=== PATIENT | female | born 1950 | race Caucasian/White ===

== ENCOUNTER 2024-03-07 17:39 | Inpatient (IN) ==
--- NOTE | 2024-03-07 18:21 | Emergency Department Note ---
Impression & Plan Abscess of left thigh, Sepsis ED Provider Note Provider: Dusty Murillo MD DATE OF SERVICE: 03/07/2024 CHIEF COMPLAINT: Buttock abscess HISTORY OF PRESENT ILLNESS: Patient is a 73-year-old female history of diabetes and hypertension presenting here today referred for express care. Patient states over the past week or so she has been experiencing some soreness to the left buttock region. States she believes she has a boil there. Did have fevers earlier in the week last on Friday. Has been having a little bit of chills and develops a bit of nausea and diarrhea in the last several days. Not eating and drinking well. Bit more sore this afternoon and have difficulty moving her legs well. States has not been moving and getting out of bed very much and think she was just stiff as they are moving a bit better now. No Tylenol or pain medication today. No history of resistant infections in the past. Did express care and sent here for further evaluation and possible IV antibiotics. She is not on blood thinners. Has noted some drainage from the wound on her left buttock inner thigh region. PAST MEDICAL HISTORY: As noted above MEDICATIONS: Reviewed home medication SOCIAL HISTORY: Former nurse, PHYSICAL EXAM: GENERAL: alert and oriented in no acute distress on stretcher Head: normocephalic and atraumatic EYES: No injection, discharge or icterus. NECK: Trachea midline. ENT: Mucous membranes pink and moist. LUNGS: Airway patent. No retractions. Breath sounds clear with good air entry bilaterally. HEART: Regular rate and rhythm. No chest wall tenderness ABDOMEN: Soft and non-tender, without guarding or rebound. With nurse digital marketing associate present there is an approximately 5 to 6 cm area of erythema and fluctuance with some slight drainage of purulence in the left proximal inner thigh region between there and the buttock. SKIN: Acyanotic, warm, dry, without rashes EXTREMITIES: Without swelling, tenderness or deformity NEUROLOGICAL: No focal deficits. No aphasia. No facial droop or slurred speech. Normal strength and tone in the extremities. Sensation to gross touch normal. Ambulatory. EK beats minute sinus tachycardia. No PVC or PAC. No acute ST segment elevation or depression with QTc of 456. CONTINUOUS CARDIAC MONITORING: was ordered and showed a heart rate of 100s-120s bpm in sinus tachycardia Patient's laboratory studies and imaging reviewed. Differential includes Appendicitis, abscess, fistula, infections, diverticulitis, UTI, obstruction, mesenteric ischemia, aortic pathology, inflammatory bowel disease, renal colic, PUD, pancreatitis, biliary pathology, hernia, volvulus, constipation, as well as other pathologies. IMPRESSION/MEDICAL DECISION MAKING: Patient with a boil and some febrile infectious symptoms earlier in the week. Not ambulatory well and generalized fatigue. Has developed some nausea and some diarrhea by her reports. Appears to have a decent sized soft tissue abscess the left buttock and inner thigh region. Fairly disparate from the perineum but I do not believe this is a fistula or vaginally or rectally involved. Already draining some but discussed with her numbing and trying to ensure we have full lanced and drainage of the abscess. Culture was sent from this. Mildly tachycardic but not febrile here. Basic blood obtained. Will give dose of ceftriaxone and vancomycin here for antibiotic coverage including MRSA given its of decent size, her age, and her history of diabetes. Benign abdomen on exam. Has had some again some nausea and diarrhea but no tenderness. Doubt perforation or diverticulitis at this time. Do not believe we need further abdominal imaging. Given some IV fluid hydration, Tylenol, and Zofran for symptoms. Blood work here without anemia but leukocytosis of 21.8 is notable. Some slight hyponatremia and hypokalemia 133 and 3.1 noted. No severe renal dysfunction noted. No evidence of transaminitis. Procalcitonin not significantly elevated. Lipase slightly elevated at 290. Patient not having significant upper abdominal discomfort. Low suspicion this represents acute pancreatitis given lack of significant abdominal discomfort or pain. Receiving IV hydration. Is feeling bit better. Normally but tachycardic but blood pressure is little bit tenuous. Given the concerns for sepsis with his abscess after drainage did recommend that we keep her in the hospital. Patient was agreeable and hospitalist was consulted. Packing will need to be changed in 24 to 48 hours. DIAGNOSIS: Thigh abscess, sepsis DISPOSITION: Hospitalist will evaluate Patient was agreeable with this plan. INCISION and DRAINAGE: Performed by myself and the patient's left proximal thigh Indications for the procedure as well as its risks and benefits were explained to the patient who provided informed consent to proceed. Patient, procedure, and site were verified immediately before the procedure. The affected area was prepped and draped for sterile technique. Local anesthesia provided with 1% with epinephrine lidocaine infiltration approximately 10 cc. Abscess was incised with #11 blade and purulent material was expressed. Cavity was packed with sterile packing gauze. Patient tolerated the procedure well. Past Med/Surg History Problem List (Updated 03/07/24 @ 23:04 by Dusty Murillo M.D.) Sepsis (Acute) Abscess of left thigh (Acute) Social History Smoking Status: Never smoker Preferred Language: Cape Verdean Feels Safe at Home: Yes Allergies Allergies Allergy/AdvReac Type Severity Reaction Status Date / Time enviromental Allergy Sneeze, Uncoded 03/07/24 20:47 runny nose Home Meds Home Medications Medication Instructions Recorded Confirmed cholecalciferol (vitamin D3) 25 0 mcg PO DAILY 03/07/24 03/07/24 mcg (1,000 unit) tablet (Vitamin D3) ibuprofen 200 mg tablet 400 mg PO Q6H PRN Pain 03/07/24 03/07/24 lisinopril 20 1 tab PO DAILY 03/07/24 03/07/24 mg-hydrochlorothiazide 25 mg tablet loratadine 10 mg tablet (Claritin) 10 mg PO DAILY 03/07/24 03/07/24 rosuvastatin 40 mg tablet 40 mg PO 2XWK 03/07/24 03/07/24 semaglutide 7 mg tablet (Rybelsus) 7 mg PO DAILY 03/07/24 03/07/24 Results & Data (ED) Vital Signs Vital Signs - 24 hr 03/07/24 17:42 03/07/24 18:35 03/07/24 19:33 Temperature 37.0 C 37.3 C Temperature Source Temporal Artery Scan Oral Pulse Rate 125 H 109 H Pulse Rate [Apical] 104 H Pulse Rhythm [Apical] Pulse Strength [Apical] Respiratory Rate 18 19 Respiratory Effort / Characteristics Non-Labored Spontaneous Respiratory Depth Normal Respiratory Pattern Regular Blood Pressure 110/87 Blood Pressure [Left Arm] 103/60 Blood Pressure Mean 94 Blood Pressure Mean [Left Arm] 74 Pulse Oximetry 98 95 Oxygen Delivery Method Room Air Room Air Sepsis Recent Fever Within 48 Hours No Sepsis New/Unexplained Change in Mental Status No Sepsis Action Taken by Nursing No Action Required 03/07/24 20:14 03/07/24 22:21 03/07/24 22:35 Temperature Temperature Source Pulse Rate 101 H Pulse Rate [Apical] 102 H 95 H Pulse Rhythm [Apical] Regular Pulse Strength [Apical] Normal Normal Respiratory Rate 19 18 Respiratory Effort / Characteristics Non-Labored Spontaneous Non-Labored Spontaneous Respiratory Depth Normal Normal Respiratory Pattern Regular Regular Blood Pressure Blood Pressure [Left Arm] 96/47 L 127/74 Blood Pressure Mean Blood Pressure Mean [Left Arm] 63 91 Pulse Oximetry 94 96 Oxygen Delivery Method Room Air Room Air Sepsis Recent Fever Within 48 Hours Sepsis New/Unexplained Change in Mental Status Sepsis Action Taken by Nursing Laboratory Data 03/07/24 18:15 03/07/24 18:15 Lab Results 03/07/24 03/07/24 Range/Units 18:15 Unknown WBC 21.83 H (4.8-10.8) K/ul RBC 5.06 (4.20-5.40) M/uL Hgb 13.9 (12.0-16.0) g/dl Hct 41.4 (37.0-47.0) % MCV 81.8 (80.0-100.0) fL MCH 27.5 (25.0-34.0) pg MCHC 33.6 (32.0-36.0) g/dL RDW Std Deviation 39.5 (36.4-46.3) fL RDW Coeff of Ambrosio 13.2 (11.5-14.5) % Plt Count 335 (130-400) K/uL MPV 9.2 L (9.4-12.4) fL Immature Gran % (Auto) 0.7 % Neut % (Auto) 79.8 % Lymph % (Auto) 9.9 % [place] % (Auto) 9.3 % Eos % (Auto) 0.0 % Baso % (Auto) 0.3 % Neut # (Auto) 17.40 H (1.40-6.50) K/uL Lymph # (Auto) 2.16 (1.20-3.40) K/uL [place] # (Auto) 2.04 H (0.11-0.59) K/uL Eos # (Auto) 0.01 (0.00-0.50) K/uL Baso # (Auto) 0.07 (0.00-0.20) K/uL Immature Gran # (Auto) 0.15 (0.01-0.20) K/uL Sodium 133 L (136-145) mmol/L Potassium 3.1 L (3.5-5.1) mmol/L Chloride 96 L (98-107) mmol/L Carbon Dioxide 25 (21-32) mmol/L Anion Gap 12 H (3-11) BUN 27 H (6-23) mg/dl Creatinine 1.10 (0.6-1.2) mg/dl Est Cr Clr Drug Dosing Not Reportable Est GFR ( Amer) 58.5 ml/min Est GFR (Non-Af Amer) 50.5 ml/min BUN/Creatinine Ratio 24.5 H (10-20) Glucose 120 H (70-99(Fasting)) mg/dl Calcium 10.0 (8.6-10.3) mg/dl Total Bilirubin 0.9 (0.2-1.0) mg/dl AST 23 (13-39) U/L ALT 22 (7-52) U/L Alkaline Phosphatase 94 (34-104) U/L Troponin I High Sens 19.5 H (0-14) pg/ml Total Protein 7.6 (6.0-8.3) gm/dl Albumin 4.0 (3.4-5.0) gm/dl Globulin 3.6 (2.5-4.0) gm/dl Albumin/Globulin Ratio 1.1 (0.9-2) Lipase 290 H (11-82) U/L Procalcitonin 0.16 (0-0.5) ng/ml Urine Color Yellow Urine Appearance Clear (Clear) Urine pH 5.5 (4.5-7.5) Ur Specific [place] 1.012 (1.000-1.030) Urine Protein Trace H (Negative) Urine Glucose (UA) Negative (Negative) Urine Ketones Negative (Negative) Urine Blood Negative (Negative) Urine Nitrite Negative (Negative) Urine Bilirubin Negative (Negative) Urine Urobilinogen Negative (Negative) Ur Leukocyte Esterase Negative (Negative) Urine WBC (Auto) 0-5 (0-5) /hpf Urine RBC (Auto) 0-2 (0-2) /hpf U Hyaline Cast (Auto) 3-5 H (0-2) /lpf U Epithel Cells (Auto) 3-5 H (0-2) /hpf Urine Bacteria (Auto) 1+ H (None Seen) Administered Medications Discontinued Medications Ceftriaxone Sodium (Rocephin) 2,000 mg in 50 mls @ 100 mls/hr IV NOW STA Stop: 03/07/24 18:40 Last Infusion: 03/07/24 18:55 Dose: Infused Documented By: Admin: 03/07/24 18:28 Dose: 100 mls/hr Documented By: RONALDO Sodium Chloride (Nss) 1,000 mls @ 999 mls/hr IV .Q1H1M ONE Stop: 03/07/24 19:13 Last Infusion: 03/07/24 19:31 Dose: Infused Documented By: Admin: 03/07/24 18:29 Dose: 999 mls/hr Documented By: RONALDO Acetaminophen (Ofirmev) 1,000 mg in 100 mls @ 400 mls/hr IV NOW STA Stop: 03/07/24 19:04 Last Infusion: 03/07/24 19:16 Dose: Infused Documented By: Admin: 03/07/24 18:52 Dose: 400 mls/hr Documented By: RONALDO Vancomycin HCl 2,000 mg/ (Sodium Chloride) 540 mls @ 200 mls/hr IV NOW ONE Stop: 03/07/24 22:05 Last Admin: 03/07/24 20:10 Dose: 200 mls/hr Documented By: RONALDO Lactated Ringer's (Lr) 1,000 mls @ 999 mls/hr IV .Q1H1M ONE Stop: 03/07/24 20:54 Last Infusion: 03/07/24 21:23 Dose: Infused Documented By: Admin: 03/07/24 20:10 Dose: 999 mls/hr Documented By: RONALDO Lidocaine/Epinephrine (Lidocaine 1%/Epinephrine 1:100,000 50 Ml Vial) 50 ml INFIL NOW ONE Stop: 03/07/24 18:21 Last Admin: 03/07/24 18:54 Dose: 50 ml Documented By: RONALDO Ondansetron HCl (Ondansetron Inj 2 Mg/Ml 2 Ml Vial) 4 mg IV NOW STA Stop: 03/07/24 18:21 Last Admin: 03/07/24 18:28 Dose: 4 mg Documented By: RONALDO Discharge Plan Visit Data Chief Complaint: Skin Problem Stated Complaint: BOIL ON LT BUTT CHEEK ED Provider: Dusty Murillo Discharge Problem: Abscess of left thigh, Sepsis Patient Disposition: Being Evaluated by Hospitalist Condition: Fair Forms Stand Alone Forms: [facility] Prescriptions Prescriptions: No Action ibuprofen 200 mg Tablet 400 mg PO Q6H PRN (Reason: Pain) lisinopril-hydrochlorothiazide 20-25 mg tablet 1 tab PO DAILY loratadine [Claritin] 10 mg Tablet 10 mg PO DAILY rosuvastatin 40 mg tablet 40 mg PO 2XWK cholecalciferol (vitamin D3) [Vitamin D3] 25 mcg (1,000 unit) Tablet 0 mcg PO DAILY Rybelsus 7 mg tablet 7 mg PO DAILY Referrals Referrals: Kay Cheung D.O. [Primary Care Provider] - Discharge Problem: Sepsis Qualifiers: Sepsis type: sepsis due to unspecified organism Sepsis acute organ dysfunction status: without acute organ dysfunction Qualified Code(s): A41.9 - Sepsis, unspecified organism
[2024-03-07] MEDS: ONDANSETRON INJ 2 MG/ML 2 ML VIAL IV STA (18:28)
[2024-03-07] MEDS: cefTRIAXone SODIUM 2,000 MG/50 ML BAG IV STA (18:28)
[2024-03-07] MEDS: SODIUM CHLORIDE 0.9% 1,000 ML IV ONE (18:29)
[2024-03-07 18:32] LABS: Basophils # (auto) 0.07 K/uL (0.00-0.20); Basophils % (auto) 0.3 %; Eosinophils # (auto) 0.01 K/uL (0.00-0.50); Hematocrit (blood only) 41.4 % (37.0-47.0); Hemoglobin 13.9 g/dl (12.0-16.0); Immature Granulocytes # (auto) 0.15 K/uL (0.01-0.20); Immature Granulocytes % (auto) 0.7 %; Lymphocytes # (auto) 2.16 K/uL (1.20-3.40); Lymphocytes % (auto) 9.9 %; Mean Corpuscular Hemoglobin 27.5 pg (25.0-34.0); Mean Corpuscular Hgb Conc 33.6 g/dL (32.0-36.0); Mean Corpuscular Volume 81.8 fL (80.0-100.0); Mean Platelet Volume 9.2 fL (9.4-12.4); Monocytes # (auto) 2.04 K/uL (0.11-0.59); Monocytes % (auto) 9.3 %; Neutrophils % (auto) 79.8 %; Platelet Count 335 K/uL (130-400); RDW Coefficient of Variation 13.2 % (11.5-14.5); RDW Standard Deviation 39.5 fL (36.4-46.3); Red Blood Count 5.06 M/uL (4.20-5.40); White Blood Count 21.83 K/ul (4.8-10.8)
[2024-03-07 18:49] LABS: Alanine Aminotransferase 22 U/L (7-52); Albumin Globulin Ratio 1.1 (0.9-2); Alkaline Phosphatase 94 U/L (34-104); Anion Gap 12 (3-11); Aspartate Aminotransferase 23 U/L (13-39); BUN Creatinine Ratio 24.5 (10-20); Bilirubin,Total 0.9 mg/dl (0.2-1.0); Blood Urea Nitrogen 27 mg/dl (6-23); Carbon Dioxide 25 mmol/L (21-32); Chloride 96 mmol/L (98-107); Est GFR (African American) 58.5 ml/min; Est GFR (Non-African American) 50.5 ml/min; Globulin 3.6 gm/dl (2.5-4.0); Glucose 120 mg/dl (70-99(Fasting)); Lipase 290 U/L (11-82); Potassium 3.1 mmol/L (3.5-5.1); Sodium 133 mmol/L (136-145); Total Protein 7.6 gm/dl (6.0-8.3)
[2024-03-07] MEDS: ACETAMINOPHEN 1,000 MG/100 ML VIAL IV STA (18:52)
[2024-03-07] MEDS: LIDOCAINE 1%/EPINEPHRINE 1:100,000 50 ML VIAL INFIL ONE (18:54)
[2024-03-07 18:55] LABS: Troponin I High Sensitivity 19.5 pg/ml (0-14)
[2024-03-07] MEDS ORDERED: VANCOMYCIN CONSULT ACTIVE PRN (19:24)
[2024-03-07] MEDS: LACTATED RINGER'S 1,000 ML IV ONE (20:10)
[2024-03-07] MEDS: VANCOMYCIN HCL 2,000 MG in SODIUM CHLORIDE 0.9% 500 ML IV ONE (20:10)
[2024-03-07 22:35] LABS: Appearance Urine Clear (Clear); Bacteria Urine Automated 1+ (None Seen); Bilirubin Urine Negative (Negative); Blood Urine Negative (Negative); Color Urine Yellow; Glucose Urine UA Negative (Negative); Ketones Urine Negative (Negative); Leukocyte Esterase Urine Negative (Negative); Nitrite Urine Negative (Negative); Protein Urine Trace (Negative); RBC Urine Automated 0-2 /hpf (0-2); Specific Gravity Urine 1.012 (1.000-1.030); Urobilinogen Urine Negative (Negative); WBC Urine Automated 0-5 /hpf (0-5); pH Urine 5.5 (4.5-7.5)
[2024-03-07] MEDS: SODIUM CHLORIDE 0.9% 500 ML IV ONE (23:45)
--- NOTE | 2024-03-08 00:09 | History & Physical Report ---
Date of Service March 08, 2024 Assessment & Plan (1) Sepsis: Plan: 73-year-old female with past medical history significant for diabetes, hypertension, hyperlipidemia and history of stroke in 1998 presents with left buttock abscess and possible sepsis. Patient noticed lump on left buttock last Friday. She was cleaning and applying triple antibiotic cream. Patient states it started to drain since last Friday Initially she had a fever but that subsided. In last couple of days she lost appetite and today she was not feeling well when she decided to go to [facility] and was sent here. The abscess was drained in ER. Empirically treated with iv Vanco and Rocephin. And got IV fluids. Blood pressure somewhat soft. Currently states she is feeling better after getting fluids. Currently no headache. No runny nose or sore throat. No cough. No difficulty swallowing. No chest pain or shortness of breath. No nausea. No abdominal pain. Having diarrhea since last few days, couple of episodes every day. Micturating okay. Possible early sepsis Tachycardia and soft blood pressure Leukocytosis Left buttock abscess S/p drain in the ER Will continue with IV Vanco and Zosyn Follow cultures Will get CT abdomen pelvis Consult surgery in a.m. for any further recommendations Continue IV fluids Close monitor Diabetes Hold home medications Sliding scale Will follow HbA1c levels and blood sugars Hypertension Will hold lisinopril and hydrochlorothiazide for now and monitor Diarrhea will monitor. probiotics Hyperlipidemia On statin DVT prophylaxis SCDs for now Disposition Telemetry Full code. History of Present Illness Chief Complaint: Left buttock abscess, possible sepsis Primary Care Provider: Kay Cheung 73-year-old female with past medical history significant for diabetes, hypertension, hyperlipidemia and history of stroke in 1998 presents with left buttock abscess and possible sepsis. Patient noticed lump on left buttock last Friday. She was cleaning and applying triple antibiotic cream. Patient states it started to drain since last Friday Initially she had a fever but that subsided. In last couple of days she lost appetite and today she was not feeling well [facility] The abscess was drained in ER. Empirically treated with iv Vanco and Rocephin. And got IV fluids. Blood pressure somewhat soft. Currently states she is feeling better after getting fluids. Currently no headache. No runny nose or sore throat. No cough. No difficulty swallowing. No chest pain or shortness of breath. No nausea. No abdominal pain. Having diarrhea since last few days, couple of episodes every day. Micturating okay. Past medical history as mentioned above Past surgical history. Cholecystectomy and hysterectomy Social history. No smoking. No alcohol use. No drug use. Family history. Significant for diabetes heart disease and cancer Allergies Allergy/AdvReac Type Severity Reaction Status Date / Time enviromental Allergy Sneeze, Uncoded 03/07/24 20:47 runny nose Home Medications Medication Instructions Recorded Confirmed Type cholecalciferol (vitamin D3) 25 0 mcg PO DAILY 03/07/24 03/07/24 History mcg (1,000 unit) tablet (Vitamin D3) ibuprofen 200 mg tablet 400 mg PO Q6H PRN Pain 03/07/24 03/07/24 History lisinopril 20 1 tab PO DAILY 03/07/24 03/07/24 History mg-hydrochlorothiazide 25 mg tablet loratadine 10 mg tablet (Claritin) 10 mg PO DAILY 03/07/24 03/07/24 History rosuvastatin 40 mg tablet 40 mg PO 2XWK 03/07/24 03/07/24 History semaglutide 7 mg tablet (Rybelsus) 7 mg PO DAILY 03/07/24 03/07/24 History Past Med/Surg History Problem List (Updated 03/08/24 @ 07:55 by Lisa Connell PA-C) Abscess of buttock, left Sepsis (Acute) Abscess of left thigh (Acute) Social History Smoking Status: Never smoker Hx Alcohol Use: No Hx Substance Use: No Preferred Language: Swedish Communication Ability: Effective Supervisor Audit Clerks Required: No Beliefs That Will Affect Care: None Current Living Situation: Alone Feels Safe at Home: Yes Safety Concerns: Feels Safe At This Time Assistive Devices: Glasses Review of Systems Review of Systems: All systems reviewed & are unremarkable except as noted in HPI & below Physical Exam Physical Exam: General- not in distress Head- atraumatic Eyes- PERRL. ENT- oropharynx clear Neck- supple, no JVD. Lungs- clear to auscultation no wheezing or crackles. Heart- regular rhythm; no murmur, no gallop. Abdomen- normal bowel sounds, soft, nontender, no distension Extremities- no pretibial edema, no erythema seen Neuro- alert, oriented PERRL, no facial palsy; no dysarthria; moves extremities Skin: Swelling and erythema seen on left buttock region s/p drained Results & Data Results & Data Vital Signs (Past 12 Hours) Vital Signs Temp Pulse Pulse Resp BP BP Pulse Ox 03/07/24 23:02 103 H 19 98/53 L 95 03/07/24 22:35 101 H 03/07/24 22:21 95 H 18 127/74 96 03/07/24 20:14 102 H 19 96/47 L 94 03/07/24 19:33 37.3 C 104 H 19 103/60 95 03/07/24 18:35 109 H 03/07/24 17:42 37.0 C 125 H 18 110/87 98 O2 Del Method 03/07/24 23:02 Room Air 03/07/24 22:35 03/07/24 22:21 Room Air 03/07/24 20:14 Room Air 03/07/24 19:33 Room Air 03/07/24 18:35 03/07/24 17:42 Room Air Diagnostic Findings Laboratory Results WBC 21.83 K/ul (4.8-10.8) H 03/07/24 18:15 RBC 5.06 M/uL (4.20-5.40) 03/07/24 18:15 Hgb 13.9 g/dl (12.0-16.0) 03/07/24 18:15 Hct 41.4 % (37.0-47.0) 03/07/24 18:15 MCV 81.8 fL (80.0-100.0) 03/07/24 18:15 MCH 27.5 pg (25.0-34.0) 03/07/24 18:15 MCHC 33.6 g/dL (32.0-36.0) 03/07/24 18:15 RDW Std Deviation 39.5 fL (36.4-46.3) 03/07/24 18:15 RDW Coeff of Ambrosio 13.2 % (11.5-14.5) 03/07/24 18:15 Plt Count 335 K/uL (130-400) 03/07/24 18:15 MPV 9.2 fL (9.4-12.4) L 03/07/24 18:15 Immature Gran % (Auto) 0.7 % 03/07/24 18:15 Neut % (Auto) 79.8 % 03/07/24 18:15 Lymph % (Auto) 9.9 % 03/07/24 18:15 [place] % (Auto) 9.3 % 03/07/24 18:15 Eos % (Auto) 0.0 % 03/07/24 18:15 Baso % (Auto) 0.3 % 03/07/24 18:15 Neut # (Auto) 17.40 K/uL (1.40-6.50) H 03/07/24 18:15 Lymph # (Auto) 2.16 K/uL (1.20-3.40) 03/07/24 18:15 [place] # (Auto) 2.04 K/uL (0.11-0.59) H 03/07/24 18:15 Eos # (Auto) 0.01 K/uL (0.00-0.50) 03/07/24 18:15 Baso # (Auto) 0.07 K/uL (0.00-0.20) 03/07/24 18:15 Immature Gran # (Auto) 0.15 K/uL (0.01-0.20) 03/07/24 18:15 Sodium 133 mmol/L (136-145) L 03/07/24 18:15 Potassium 3.1 mmol/L (3.5-5.1) L 03/07/24 18:15 Chloride 96 mmol/L (98-107) L 03/07/24 18:15 Carbon Dioxide 25 mmol/L (21-32) 03/07/24 18:15 Anion Gap 12 (3-11) H 03/07/24 18:15 BUN 27 mg/dl (6-23) H 03/07/24 18:15 Creatinine 1.10 mg/dl (0.6-1.2) 03/07/24 18:15 Est Cr Clr Drug Dosing Not Reportable 03/07/24 18:15 Est GFR ( Amer) 58.5 ml/min 03/07/24 18:15 Est GFR (Non-Af Amer) 50.5 ml/min 03/07/24 18:15 BUN/Creatinine Ratio 24.5 (10-20) H 03/07/24 18:15 Glucose 120 mg/dl (70-99(Fasting)) H 03/07/24 18:15 Calcium 10.0 mg/dl (8.6-10.3) 03/07/24 18:15 Total Bilirubin 0.9 mg/dl (0.2-1.0) 03/07/24 18:15 AST 23 U/L (13-39) 03/07/24 18:15 ALT 22 U/L (7-52) 03/07/24 18:15 Alkaline Phosphatase 94 U/L (34-104) 03/07/24 18:15 Troponin I High Sens 19.5 pg/ml (0-14) H 03/07/24 18:15 Total Protein 7.6 gm/dl (6.0-8.3) 03/07/24 18:15 Albumin 4.0 gm/dl (3.4-5.0) 03/07/24 18:15 Globulin 3.6 gm/dl (2.5-4.0) 03/07/24 18:15 Albumin/Globulin Ratio 1.1 (0.9-2) 03/07/24 18:15 Lipase 290 U/L (11-82) H 03/07/24 18:15 Procalcitonin 0.16 ng/ml (0-0.5) 03/07/24 18:15 Urine Color Yellow 03/07/24 Unknown Urine Appearance Clear (Clear) 03/07/24 Unknown Urine pH 5.5 (4.5-7.5) 03/07/24 Unknown Ur Specific [place] 1.012 (1.000-1.030) 03/07/24 Unknown Urine Protein Trace (Negative) H 03/07/24 Unknown Urine Glucose (UA) Negative (Negative) 03/07/24 Unknown Urine Ketones Negative (Negative) 03/07/24 Unknown Urine Blood Negative (Negative) 03/07/24 Unknown Urine Nitrite Negative (Negative) 03/07/24 Unknown Urine Bilirubin Negative (Negative) 03/07/24 Unknown Urine Urobilinogen Negative (Negative) 03/07/24 Unknown Ur Leukocyte Esterase Negative (Negative) 03/07/24 Unknown Urine WBC (Auto) 0-5 /hpf (0-5) 03/07/24 Unknown Urine RBC (Auto) 0-2 /hpf (0-2) 03/07/24 Unknown U Hyaline Cast (Auto) 3-5 /lpf (0-2) H 03/07/24 Unknown U Epithel Cells (Auto) 3-5 /hpf (0-2) H 03/07/24 Unknown Urine Bacteria (Auto) 1+ (None Seen) H 03/07/24 Unknown ECG Additional Comments: ECG. Sinus tachycardia rate of 115. No acute ST changes seen. QTc 456. Code Status & VTE Plan VTE Prophylaxis Plan VTE Prophylaxis will be ordered: Yes (1) Sepsis Sepsis acute organ dysfunction status: without acute organ dysfunction Sepsis type: sepsis due to unspecified organism Qualified Code(s): A41.9 - Sepsis, unspecified organism
[2024-03-08] MEDS: POTASSIUM CHLORIDE CRTAB 20 MEQ TABCR PO STA ×2 (00:20→07:42)
[2024-03-08] MEDS ORDERED: GLUCOSE 10 TAB/TUBE PO PRN (00:29)
[2024-03-08] MEDS ORDERED: POLYETHYLENE (MIRALAX) 17 GM PACK PO PRN (00:29)
[2024-03-08] MEDS ORDERED: GLUCOSE 40% GEL 15 GM TUBE PO PRN (00:29)
[2024-03-08] MEDS ORDERED: GLUCAGON FOR INJ 1 MG VIAL SQ PRN (00:29)
[2024-03-08] MEDS ORDERED: NITROGLYCERIN SL 0.4 MG/TAB TAB SL PRN (00:29)
[2024-03-08] MEDS ORDERED: CARBOHYDRATES FOR HYPOGLYCEMIA PO PRN (00:29)
[2024-03-08] MEDS ORDERED: DEXTROSE 50% 50 ML SYRINGE IV PRN (00:29)
[2024-03-08] MEDS: OPTIRAY 320 100ml IV ONE (01:13)
[2024-03-08] MEDS: SODIUM CHLORIDE 0.9% 1,000 ML IV SCH (01:33)
[2024-03-08] MEDS: INSULIN ASPART PER UNIT CHARGE SC SCH ×2 (01:33→20:48)
[2024-03-08] MEDS: ACETAMINOPHEN 325 MG TAB PO STA (01:34)
[2024-03-08] MEDS: PIPER/TAZO 4.5g in D5W MINI-B 100 ML IV ONE (01:35)
--- NOTE | 2024-03-08 02:39 | CT Scan Report ---
Exam(s): CT ABDOMEN + PELVIS With Contrast IV Amt: 93 ML OPTIRAY 320 EXAM: CT Abdomen and Pelvis With Intravenous Contrast CLINICAL HISTORY: Reason for exam: left buttock abscess. TECHNIQUE: Axial computed tomography images of the abdomen and pelvis with intravenous contrast. CTDI is 27.71 mGy and DLP is 1587.5 mGy-cm. Automated exposure control was utilized for the study. A dose lowering technique was utilized adhering to the principles of ALARA. CONTRAST: Patient received 93 ML OPTIRAY 320 of IV contrast COMPARISON: No relevant prior studies available. FINDINGS: Lung bases: Unremarkable. No mass. No consolidation. ABDOMEN: Liver: Unremarkable. No mass. Gallbladder and bile ducts: Cholecystectomy. No ductal dilation. Pancreas: Unremarkable. No mass. No ductal dilation. Spleen: Unremarkable. No splenomegaly. Adrenals: Unremarkable. No mass. Kidneys and ureters: Renal cysts measuring up to 4.8 cm. No hydronephrosis. Stomach and bowel: Liquid stool in the colon, concerning for diarrheal disease. No obstruction. No mucosal thickening. PELVIS: Appendix: No findings to suggest acute appendicitis. Bladder: Decompressed urinary bladder. Reproductive: Unremarkable as visualized. ABDOMEN and PELVIS: Intraperitoneal space: Unremarkable. No free air. No significant fluid collection. Bones/joints: Degenerative changes of the spine. No acute fracture. No dislocation. Soft tissues: Wound in the LEFT buttocks and cutaneous fat with associated sub-cutaneous edema and coalescing phlegmonous change. Findings are consistent with infection. No drainable collection/abscess at this time. Vasculature: Atherosclerotic changes of the aorta. No abdominal aortic aneurysm. Lymph nodes: Unremarkable. No enlarged lymph nodes. IMPRESSION: 1. Wound in the LEFT buttocks and cutaneous fat with associated sub- cutaneous edema and coalescing phlegmonous change. Findings are consistent with infection. No drainable collection/abscess at this time. 2. Liquid stool in the colon, concerning for diarrheal disease. 3. Cholecystectomy. Electronically signed by: Lamonte Nuñez MD 03/08/24 02:37 AM
[2024-03-08 05:15] LABS: BUN Creatinine Ratio 23.2 (10-20); Calcium 8.7 mg/dl (8.6-10.3); Creatinine Clr Calc Pharmacy 60.2 ml/min; Est GFR (African American) 66.4 ml/min; Est GFR (Non-African American) 57.3 ml/min; Magnesium 1.8 mg/dl (1.7-2.4); Potassium 3.3 mmol/L (3.5-5.1)
[2024-03-08] MEDS: PIPERACILLIN/TAZOBACTAM 4.5 GM in DEXTROSE 5% MINI-B 100 ML IV SCH (05:22)
[2024-03-08 05:23] LABS: Basophils # (auto) 0.06 K/uL (0.00-0.20); Basophils % (auto) 0.4 %; Eosinophils # (auto) 0.05 K/uL (0.00-0.50); Eosinophils % (auto) 0.3 %; Hematocrit (blood only) 33.1 % (37.0-47.0); Hemoglobin 11.1 g/dl (12.0-16.0); Immature Granulocytes # (auto) 0.11 K/uL (0.01-0.20); Immature Granulocytes % (auto) 0.7 %; Lymphocytes # (auto) 2.54 K/uL (1.20-3.40); Lymphocytes % (auto) 16.1 %; Mean Corpuscular Hemoglobin 27.8 pg (25.0-34.0); Mean Corpuscular Hgb Conc 33.5 g/dL (32.0-36.0); Mean Platelet Volume 9.6 fL (9.4-12.4); Monocytes # (auto) 1.69 K/uL (0.11-0.59); Monocytes % (auto) 10.7 %; Neutrophils # (auto) 11.32 K/uL (1.40-6.50); Neutrophils % (auto) 71.8 %; Platelet Count 295 K/uL (130-400); RDW Coefficient of Variation 13.2 % (11.5-14.5); RDW Standard Deviation 40.6 fL (36.4-46.3); Red Blood Count 3.99 M/uL (4.20-5.40); White Blood Count 15.77 K/ul (4.8-10.8)
[2024-03-08] MEDS: VANCOMYCIN HCL 1,250 MG in SODIUM CHLORIDE 0.9% 250 ML IV SCH (06:20)
[2024-03-08 07:18] LABS: Estimated Average Glucose 126 mg/dl
[2024-03-08] MEDS: ROSUVASTATIN CALCIUM 20 MG TAB PO SCH (07:42)
[2024-03-08] MEDS: LORATADINE 10 MG TAB PO SCH (07:42)
--- NOTE | 2024-03-08 08:02 | Surgery Consultation ---
<Statement entered by Sd Islas, - 03/08/24 17:01> I have discussed this case with the surgical PA and I agree with the plan. Date of Consultation March 08, 2024 Assessment & Plan (1) Abscess of buttock, left: This is a 73yF with a PMH of DM, HTN, HLD, h/o CVA who presents to the [facility] ED on 03/07/24 with complaints of L buttocks discomfort that started out as a painful lump last week. It opened up starting last and patient has been using warm compresses, sitz baths, and triple antibiotic ointment. Despite this she developed some fevers/chills, nausea and generalized feelings of unwell prompting her to come in yesterday for further evaluation. In the ER the patient underwent a CT a/p that revealed a wound in the LEFT buttocks and cutaneous fat with associated sub-cutaneous edema and coalescing phlegmonous change. No drainable collection/abscess at this time. Also evidence of likely diarrheal disease. The patient underwent I&D in the OR and reports feeling better. It is currently packed with nu-gauze. Her labs are improving with WBC 15 (21). Other blood work shows Hbg 11, lactate 0.8, K 3.3, Cr 0.9. HBA1C is 6. Vitals show she was afebrile, with HRs improved to the 80s from 120s, and SBPs ranging from 90- 100s. On exam patient is resting comfortably. Her left buttock region has some evidence of induration, erythema, and tenderness to the area of concern. Pt reports it does feel much better overall. The ER did perform an I&D with the wound opened to about 1 inch with packing in place. Patient already showing improving s/p I&D and the initiation of IV abx and IVF resuscitation. Will continue to monitor wound for hopefully ongoing progress. Keep packing in place, will likely change this tomorrow. Continue IV abx. Wound cultures pending. Patient can eat from our standpoint today. Recommend warm sitz baths. Will follow. History of Present Illness Attending Physician: Tiny Christopher MD History of Present Illness This is a 73yF with a PMH of DM, HTN, HLD, h/o CVA who presents to the [facility] ED on 03/07/24 with complaints of L buttocks discomfort. Patient states last she felt a little "sick-tricia". Then last friday she felt a lump in her left buttocks region. She had to drive to [place] on Friday and was sitting on the area which she feels made it a bit worse. It ended up opening up and draining last friday when she started to utilize epsom salt baths, warm compresses, and triple antibiotic ointment to the area. Unfortunately she started to develop some fevers/chills, nausea and low appetite. Over the wknd she ended up going to express care who referred her to the ER for potential IV abx given the appearance of the area of concern. The patient underwent a CT a/p that revealed a ound in the LEFT buttocks and cutaneous fat with associated sub-cutaneous edema and coalescing phlegmonous change. No drainable collection/abscess at this time. Also evidence of likely diarrheal disease. The patient underwent I&D in the OR and reports feeling better. It has been draining some purulence mixed with blood per patient since last friday. She says she has has a pilonidal cysts in the past and some infected hair follicles, but none needed surgical intervened upon. She reports feeling 80% better at this point and is hungry. She is now able to lay on the area and feels zero pressure or pain at rest. Allergies Allergy/AdvReac Type Severity Reaction Status Date / Time enviromental Allergy Sneeze, Uncoded 03/07/24 20:47 runny nose Home Medications Medication Instructions Recorded Confirmed Type cholecalciferol (vitamin D3) 25 0 mcg PO DAILY 03/07/24 03/07/24 History mcg (1,000 unit) tablet (Vitamin D3) ibuprofen 200 mg tablet 400 mg PO Q6H PRN Pain 03/07/24 03/07/24 History lisinopril 20 1 tab PO DAILY 03/07/24 03/07/24 History mg-hydrochlorothiazide 25 mg tablet loratadine 10 mg tablet (Claritin) 10 mg PO DAILY 03/07/24 03/07/24 History rosuvastatin 40 mg tablet 40 mg PO 2XWK 03/07/24 03/07/24 History semaglutide 7 mg tablet (Rybelsus) 7 mg PO DAILY 03/07/24 03/07/24 History Patient History Social History Smoking Status: Never smoker Hx Alcohol Use: No Hx Substance Use: No Preferred Language: Danish Communication Ability: Effective 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 Beliefs That Will Affect Care: None Current Living Situation: Alone Feels Safe at Home: Yes Safety Concerns: Feels Safe At This Time Assistive Devices: Glasses Review of Systems Constitutional: + fever, + chills and + anorexia Respiratory: some SOB noted last week but none today Cardiovascular: no chest pain Gastrointestinal: + nausea, + vomiting and + diarrhea/loos e stools; no abdominal pain painful area to left buttocks, draining purulence mixed with blood and serous fluid Neurologic: no dizziness no lightheadedness Physical Exam Physical Exam: awake/alert, no distress Constitutional: well developed and well nourished Respiratory: normal respiratory effort Gastrointestinal (Abdomen): Percussion/Palpation: abdomen soft Skin: induration, erythema, and tenderness to L buttocks region, I&D wound opened to about 1 inch with packing in place. Results & Data Vital Signs (Past 12 Hours) Vital Signs Pulse Pulse Resp BP Pulse Ox Pulse Ox O2 Del Method 03/08/24 06:00 88 17 105/52 L 95 Room Air 03/08/24 01:30 96 H 18 106/65 98 Room Air 03/08/24 01:30 97 03/07/24 23:02 103 H 19 98/53 L 95 Room Air 03/07/24 22:35 101 H 03/07/24 22:21 95 H 18 127/74 96 Room Air 03/07/24 20:14 102 H 19 96/47 L 94 Room Air O2 Del Method 03/08/24 06:00 03/08/24 01:30 03/08/24 01:30 Room Air 03/07/24 23:02 03/07/24 22:35 03/07/24 22:21 03/07/24 20:14 Diagnostic Findings Exam(s): CT ABDOMEN + PELVIS With Contrast IV Amt: 93 ML OPTIRAY 320 EXAM: CT Abdomen and Pelvis With Intravenous Contrast CLINICAL HISTORY: Reason for exam: left buttock abscess. TECHNIQUE: Axial computed tomography images of the abdomen and pelvis with intravenous contrast. CTDI is 27.71 mGy and DLP is 1587.5 mGy-cm. Automated exposure control was utilized for the study. A dose lowering technique was utilized adhering to the principles of ALARA. CONTRAST: Patient received 93 ML OPTIRAY 320 of IV contrast COMPARISON: No relevant prior studies available. FINDINGS: Lung bases: Unremarkable. No mass. No consolidation. ABDOMEN: Liver: Unremarkable. No mass. Gallbladder and bile ducts: Cholecystectomy. No ductal dilation. Pancreas: Unremarkable. No mass. No ductal dilation. Spleen: Unremarkable. No splenomegaly. Adrenals: Unremarkable. No mass. Kidneys and ureters: Renal cysts measuring up to 4.8 cm. No hydronephrosis. Stomach and bowel: Liquid stool in the colon, concerning for diarrheal disease. No obstruction. No mucosal thickening. PELVIS: Appendix: No findings to suggest acute appendicitis. Bladder: Decompressed urinary bladder. Reproductive: Unremarkable as visualized. ABDOMEN and PELVIS: Intraperitoneal space: Unremarkable. No free air. No significant fluid collection. Bones/joints: Degenerative changes of the spine. No acute fracture. No dislocation. Soft tissues: Wound in the LEFT buttocks and cutaneous fat with associated sub-cutaneous edema and coalescing phlegmonous change. Findings are consistent with infection. No drainable collection/abscess at this time. Vasculature: Atherosclerotic changes of the aorta. No abdominal aortic aneurysm. Lymph nodes: Unremarkable. No enlarged lymph nodes. IMPRESSION: 1. Wound in the LEFT buttocks and cutaneous fat with associated sub- cutaneous edema and coalescing phlegmonous change. Findings are consistent with infection. No drainable collection/abscess at this time. 2. Liquid stool in the colon, concerning for diarrheal disease. 3. Cholecystectomy. Electronically signed by: Lamonte Nuñez MD 03/08/24 02:37 AM PG Care Time/CCT Total # of Minutes Spent Total Time Spent with Patient: Total time spent is greater than 50% in coordination of care (as documented) at patient's floor/unit and/or counseling patient: Coding Level of Care Code 10113 INT INP/OBS CARE 1/40MIN Diagnoses Abscess of buttock, left L02.31
[2024-03-08] MEDS: ACETAMINOPHEN 325 MG TAB PO PRN (09:01)
--- NOTE | 2024-03-08 10:22 | Pharmacy Report ---
Pharmacy PK ABX Note - Date of Service March 08, 2024 - Assessment and Plan Assessment 73 year old F receiving vancomcyin/zosyn for treatment of L. buttock abscess, sepsis. Pertinent microbiologic data includes: Buttock culture growing staph species, urine culture pending. WBC is downtrending 21.8 --> 15.7 today. Afebrile. Patient abscess was already draining but did have further I&D performed in the ED. Plan Vancomycin * Loading dose: 2000 mg IV x 1 * Maintenance dose: 1250 mg IV every 18 hours * Regimen is predicted to achieve target AUC/LEATHA of 400-600 mg/L.hr * Random level scheduled for 03/09 @ 1200 Pharmacy will continue to follow and will adjust dose/frequency as necessary. Thank you. Pharmacy has transitioned to AUC monitoring for vancomycin. AUC/LEATHA is the preferred PK/PD target and is associated with decreased risk of nephrotoxicity compared to traditional trough targets.
--- NOTE | 2024-03-08 10:28 | Hospitalist Progress Note ---
Date of Service March 08, 2024 Assessment & Plan (1) Sepsis: Plan: Ms. Figueroa is a 73-year-old female with past medical history significant for diabetes, hypertension, hyperlipidemia and history of stroke in 1998 admitted for sepsis secondary to buttock abscess. Patient attempted to manage at home, allowing area to drain and treating with topical agents. Patient with leukocytosis, tachycardia and notable left buttock cellulitis and abscess now s/p I&D in ED on 03/07 #Sepsis 2/2 left buttock abscess Tachycardia, relative hypotension, leukocytosis Left buttock abscess S/p drainage and packing in the ER Will continue with IV Vanco and Zosyn -Culture with staph species, will d/c zosyn likely if only organism CT AB/P only with cellulitis and no other acute changes Patient given LR in ED with cautious fluid resuscitation 2/2 concern of overload Continue IV fluids @ 125 for a total of 2 more L IVF Close monitor #Diabetes Hold home medications, well controlled A1C 6.0% Sliding scale #Hypertension Continue to hold lisinopril and hydrochlorothiazide for now and monitor #Diarrhea will monitor. probiotics #Hyperlipidemia On statin DVT prophylaxis lovenox Disposition Telemetry---no need for PCU status at this time, will downgrade Full code. Admission and Anticipated Discharge Date Admission Date: March 07, 2024 Subjective Reports subjective improvement States left buttock with much improvement after I&D in ED Endorses return of appetite Reports recent episode of diarrhea, but nothing uncontrollable or uncomfortable Physical Exam Constitutional: WD/WN, vitals as above Respiratory: normal respiratory effort, lungs clear to auscultation Cardiovascular: RRR, no murmur, no edema Gastrointestinal (Abdomen): normal bowel sounds, soft, nontender, no hepatosplenomegaly Skin: left dressing in place over buttock Results & Data Results & Data Vital Signs (Past 12 Hours) Vital Signs Pulse Pulse Resp BP Pulse Ox Pulse Ox O2 Del Method 03/08/24 06:00 88 17 105/52 L 95 Room Air 03/08/24 01:30 96 H 18 106/65 98 Room Air 03/08/24 01:30 97 03/07/24 23:02 103 H 19 98/53 L 95 Room Air 03/07/24 22:35 101 H 03/07/24 22:21 95 H 18 127/74 96 Room Air O2 Del Method 03/08/24 06:00 08/05/24 01:30 03/08/24 01:30 Room Air 03/07/24 23:02 03/07/24 22:35 03/07/24 22:21 Laboratory Results Short CBC 03/07/24 03/08/24 Range/Units 18:15 04:46 WBC 21.83 H 15.77 H (4.8-10.8) K/ul Hgb 13.9 11.1 L (12.0-16.0) g/dl Hct 41.4 33.1 L (37.0-47.0) % Plt Count 335 295 (130-400) K/uL BMP 03/07/24 03/08/24 18:15 04:46 Sodium 133 L 136 Potassium 3.1 L 3.3 L Chloride 96 L 103 Carbon Dioxide 25 28 BUN 27 H 23 Creatinine 1.10 0.99 Glucose 120 H 100 H Calcium 10.0 8.7 Liver Function 03/07/24 Range/Units 18:15 Total Bilirubin 0.9 (0.2-1.0) mg/dl AST 23 (13-39) U/L ALT 22 (7-52) U/L Alkaline Phosphatase 94 (34-104) U/L Albumin 4.0 (3.4-5.0) gm/dl Urine 03/07/24 Range/Units Unknown Urine Color Yellow Urine Appearance Clear (Clear) Urine pH 5.5 (4.5-7.5) Ur Specific [place] 1.012 (1.000-1.030) Urine Protein Trace H (Negative) Urine Glucose (UA) Negative (Negative) Medications Administered Home Medications Medication Instructions Recorded Confirmed Last Taken cholecalciferol (vitamin D3) 25 0 mcg PO DAILY 03/07/24 03/07/24 Unknown mcg (1,000 unit) tablet (Vitamin D3) ibuprofen 200 mg tablet 400 mg PO Q6H PRN Pain 03/07/24 03/07/24 Unknown lisinopril 20 1 tab PO DAILY 03/07/24 03/07/24 Unknown mg-hydrochlorothiazide 25 mg tablet loratadine 10 mg tablet (Claritin) 10 mg PO DAILY 03/07/24 03/07/24 Unknown rosuvastatin 40 mg tablet 40 mg PO 2XWK 03/07/24 03/07/24 Unknown semaglutide 7 mg tablet (Rybelsus) 7 mg PO DAILY 03/07/24 03/07/24 Unknown Active Medications Generic Name Dose Route Start Last Admin Trade Name Freq PRN Reason Stop Dose Admin Acetaminophen 650 mg 03/08/24 00:29 03/08/24 09:01 Acetaminophen 325 Mg Tab PO 04/07/24 00:28 650 mg Q4H PRN Administration Pain or Fever Sodium Chloride 1,000 mls @ 125 mls/hr 03/08/24 00:29 03/08/24 07:44 Nss IV 04/07/24 00:28 125 mls/hr .Q8H BEENA Administration Piperacillin Sod/Tazobactam 100 mls @ 25 mls/hr 03/08/24 06:00 03/08/24 09:00 Sod 4.5 gm/ Dextrose IV 03/15/24 05:59 Infused Q8H BEENA Infusion Protocol Vancomycin HCl 1,250 mg/ 275 mls @ 200 mls/hr 03/08/24 06:00 03/08/24 07:45 Sodium Chloride IV 03/15/24 05:59 Infused Q18H BEENA Infusion Insulin Aspart 0 units 03/08/24 00:29 03/08/24 05:26 Insulin Aspart Per Unit Charge SC 04/07/24 00:28 Not Given Q6 BEENA Loratadine 10 mg 03/08/24 09:00 03/08/24 07:42 Loratadine 10 Mg Tab PO 04/07/24 08:59 10 mg DAILY BEENA Administration Rosuvastatin Calcium 40 mg 03/08/24 09:00 03/08/24 07:42 Rosuvastatin Calcium 20 Mg Tab PO 04/07/24 08:59 40 mg MoFr@0900 BEENA Administration (1) Sepsis Sepsis acute organ dysfunction status: without acute organ dysfunction Sepsis type: sepsis due to unspecified organism Qualified Code(s): A41.9 - Sepsis, unspecified organism
[2024-03-08] MEDS: LACTOBACILLUS ACIDOPHILUS 1 GM PACK PO SCH (12:05)
[2024-03-08] MEDS: ENOXAPARIN INJ 40 MG/0.4 ML SYR SQ SCH (12:05)
--- NOTE | 2024-03-08 17:02 | Electrocardiogram Report ---
Test Reason : Blood Pressure : */* mmHG Vent. Rate : 115 BPM Atrial Rate : 115 BPM P-R Int : 142 ms QRS Dur : 98 ms QT Int : 330 ms P-R-T Axes : 37 65 17 degrees QTcB Int : 456 ms Sinus tachycardia Otherwise normal ECG When compared with ECG of 02-DEC-1997 11:58, Vent. rate has increased BY 44 BPM Confirmed by Reinaldo Matta ([id number]) on 03/08/2024 5:02:24 PM Referred By: REFERRED SELF Confirmed By: Reinaldo Matta
[2024-03-08] MEDS ORDERED: Nursing to Pharmacy Communication SCH (20:15)
[2024-03-09] MEDS: ONDANSETRON INJ 2 MG/ML 2 ML VIAL IV PRN (02:24)
--- NOTE | 2024-03-09 08:04 | Hospitalist Progress Note ---
Date of Service March 09, 2024 Assessment & Plan (1) Sepsis: Plan: Ms. Figueroa is a 73-year-old female with past medical history significant for diabetes, hypertension, hyperlipidemia and history of stroke in 1998 admitted for sepsis secondary to buttock abscess. Patient attempted to manage at home, allowing area to drain and treating with topical agents. Patient with leukocytosis, tachycardia and notable left buttock cellulitis and abscess now s/p I&D in ED on 03/07 Patient now with resolving hypotension, downtrending leukocytosis. Cultures with MRSA. Febrile to 37.6 Plan for NPO per surgery given possible ID in OR tomorrow #Sepsis 2/2 left buttock abscess*resolving Tachycardia, relative hypotension, leukocytosis Left buttock abscess S/p drainage and packing in the ER Will continue with IV Vanco and Zosyn -Culture with MRSA continue Vancomycin -Contact precautions CT AB/P only with cellulitis and no other acute changes Patient given LR in ED with cautious fluid resuscitation 2/2 concern of overload Discontinue IVF Close monitor NPO at midnight for surgery to consider possible OR I&D if persistent WBC and drainage Surgery following -Sitz baths and warm compresses Hold DVT ppx today #Diabetes Hold home medications, well controlled A1C 6.0% Sliding scale #Chronic normocytic anemia elevated ferritin iso infection, likely mixed anemia chronic disease/DOROTHEA Add supplementation (will start 03/11 given NPO and to avoid iron on empty stomach iso possible procedure) #Hypertension Continue to hold lisinopril and hydrochlorothiazide for now and monitor Pressures fluctuating and possible procedure, continue to hold in interim #Diarrhea will monitor. probiotics #Hyperlipidemia On statin DVT prophylaxis lovenox (held for procedure) SCD Disposition Telemetry Full code. Admission and Anticipated Discharge Date Admission Date: March 07, 2024 Subjective Reports feeling tired but still improving Difficulty sleeping 2/2 positioning of abscess on gluteal cleft Denies any continued nausea, vomiting, or other acute concerns Patient concerned about BP, however, discussed waiting to resume BP meds if pressures stabilize >130s, patient verbalized understanding Physical Exam Constitutional: WD/WN, vitals as above Respiratory: normal respiratory effort, lungs clear to auscultation Cardiovascular: RRR, no murmur, no edema Gastrointestinal (Abdomen): normal bowel sounds, soft, nontender, no hepatosplenomegaly Skin: mepilex in place on gluteal cleft no surround erythema, however left glute tender to palpation Results & Data Results & Data Vital Signs (Past 12 Hours) Vital Signs Temp Pulse Pulse Pulse Resp BP BP 03/09/24 07:35 88 03/09/24 07:32 36.6 C 89 17 130/81 03/09/24 02:31 37.6 C H 97 H 18 03/08/24 23:24 37.0 C 101 H 18 03/08/24 21:46 102 H 03/08/24 21:45 03/08/24 21:17 37.3 C 103 H 18 149/79 H 03/08/24 21:12 110 H 03/08/24 20:36 03/08/24 20:36 37.7 C H 03/08/24 20:32 154/85 H 03/08/24 20:18 106 H 25 H BP Pulse Ox O2 Del Method 03/09/24 07:35 03/09/24 07:32 95 Room Air 03/09/24 02:31 109/72 94 Room Air 03/08/24 23:24 118/68 95 Room Air 03/08/24 21:46 03/08/24 21:45 Room Air 03/08/24 21:17 95 Room Air 03/08/24 21:12 03/08/24 20:36 Room Air 03/08/24 20:36 03/08/24 20:32 03/08/24 20:18 94 Laboratory Results Short CBC 03/09/24 Range/Units 07:35 WBC 14.72 H (4.8-10.8) K/ul Hgb 10.9 L (12.0-16.0) g/dl Hct 34.0 L (37.0-47.0) % Plt Count 294 (130-400) K/uL BMP 03/09/24 07:35 Sodium 139 Potassium 3.2 L Chloride 105 Carbon Dioxide 28 BUN 15 Creatinine 0.77 Glucose 82 Calcium 8.7 Medications Administered Home Medications Medication Instructions Recorded Confirmed Last Taken cholecalciferol (vitamin D3) 25 0 mcg PO DAILY 03/07/24 03/07/24 Unknown mcg (1,000 unit) tablet (Vitamin D3) ibuprofen 200 mg tablet 400 mg PO Q6H PRN Pain 03/07/24 03/07/24 Unknown lisinopril 20 1 tab PO DAILY 03/07/24 03/07/24 Unknown mg-hydrochlorothiazide 25 mg tablet loratadine 10 mg tablet (Claritin) 10 mg PO DAILY 03/07/24 03/07/24 Unknown rosuvastatin 40 mg tablet 40 mg PO 2XWK 03/07/24 03/07/24 Unknown semaglutide 7 mg tablet (Rybelsus) 7 mg PO DAILY 03/07/24 03/07/24 Unknown Active Medications Generic Name Dose Route Start Last Admin Trade Name Freq PRN Reason Stop Dose Admin Acetaminophen 650 mg 03/08/24 00:29 03/09/24 02:36 Acetaminophen 325 Mg Tab PO 04/07/24 00:28 650 mg Q4H PRN Administration Pain or Fever Enoxaparin Sodium 40 mg 03/08/24 10:30 03/09/24 08:08 Enoxaparin Inj 40 Mg/0.4 Ml Syr SQ 04/07/24 10:29 Not Given QAM BEENA Vancomycin HCl 1,250 mg/ 275 mls @ 200 mls/hr 03/08/24 06:00 03/09/24 01:50 Sodium Chloride IV 03/15/24 05:59 Infused Q18H BEENA Infusion Insulin Aspart 0 units 03/08/24 21:00 03/09/24 09:15 Insulin Aspart Per Unit Charge SC 04/07/24 00:28 Not Given ACHS BEENA Lactobacillus Acidophilus 1 packet 03/08/24 12:00 03/09/24 08:08 Lactobacillus Acidophilus 1 Gm Pack PO 04/07/24 11:59 1 packet TIDM BEENA Administration Loratadine 10 mg 03/08/24 09:00 03/09/24 08:08 Loratadine 10 Mg Tab PO 04/07/24 08:59 10 mg DAILY BEENA Administration Ondansetron HCl 4 mg 03/09/24 02:05 03/09/24 02:24 Ondansetron Inj 2 Mg/Ml 2 Ml Vial IV 04/08/24 02:04 4 mg Q6H PRN Administration Nausea And Vomiting Rosuvastatin Calcium 40 mg 03/08/24 09:00 03/08/24 07:42 Rosuvastatin Calcium 20 Mg Tab PO 04/07/24 08:59 40 mg MoFr@0900 BEENA Administration (1) Sepsis Sepsis acute organ dysfunction status: without acute organ dysfunction Sepsis type: sepsis due to unspecified organism Qualified Code(s): A41.9 - Sepsis, unspecified organism
[2024-03-09 08:44] LABS: Hemoglobin 10.9 g/dl (12.0-16.0); Mean Corpuscular Hemoglobin 26.9 pg (25.0-34.0); Mean Corpuscular Hgb Conc 32.1 g/dL (32.0-36.0); Mean Platelet Volume 9.5 fL (9.4-12.4); Platelet Count 294 K/uL (130-400); RDW Coefficient of Variation 13.3 % (11.5-14.5); RDW Standard Deviation 41.2 fL (36.4-46.3); Red Blood Count 4.05 M/uL (4.20-5.40); White Blood Count 14.72 K/ul (4.8-10.8)
[2024-03-09 08:54] LABS: BUN Creatinine Ratio 19.5 (10-20); Calcium 8.7 mg/dl (8.6-10.3); Est GFR (Non-African American) 77.7 ml/min; Magnesium 1.7 mg/dl (1.7-2.4); Potassium 3.2 mmol/L (3.5-5.1)
[2024-03-09 09:13] LABS: Ferritin 402.8 ng/ml (8-388)
[2024-03-09 09:24] LABS: Folate (Folic Acid),Ser orPlas 10.04 ng/ml (>5.38)
--- NOTE | 2024-03-09 10:03 | Surgery Progress Note ---
Date of Service March 09, 2024 Assessment & Plan (1) Abscess of buttock, left: Plan: This is a 73yF with a PMH of DM, HTN, HLD, h/o CVA who presents to the [facility] ED on 03/07/24 with complaints of L buttocks discomfort that started out as a painful lump last week. It opened up starting last and patient has been using warm compresses, sitz baths, and triple antibiotic ointment. Despite this she developed some fevers/chills, nausea and generalized feelings of unwell prompting her to come in yesterday for further evaluation. In the ER the patient underwent a CT a/p that revealed a wound in the LEFT buttocks and cutaneous fat with associated sub-cutaneous edema and coalescing phlegmonous change. No drainable collection/abscess at this time. Also evidence of likely diarrheal disease. The patient underwent I&D in the OR and reports feeling better. It is currently packed with nu-gauze. Her labs are improving with WBC 15 (21). Other blood work shows Hbg 11, lactate 0.8, K 3.3, Cr 0.9. HBA1C is 6. Vitals show she was afebrile, with HRs improved to the 80s from 120s, and SBPs ranging from 90- 100s. On exam patient is resting comfortably. Her left buttock region has some evidence of induration, erythema, and tenderness to the area of concern. Pt rep orts it does feel much better overall. The ER did perform an I&D with the wound opened to about 1 inch with packing in place. Patient already showing improving s/p I&D and the initiation of IV abx and IVF resuscitation. Plan Continue with warm sitz baths and warm compresses Pack daily Leukocytosis did show improvement this am. F/U am labs Patient wound cultures reveal (+)MRSA. On Vancomycin. May consider OR for more formal drainage should she continue to have fevers or leukocytosis stops improving. NPO after MN pending surgical evaluation in the am Hold chemical DVT ppx Admission and Anticipated Discharge Date Admission Date: March 07, 2024 Subjective Reina was seen and examined this am. She states she continues to feel improvement, not returned completely to her baseline. She states the area at her right buttock continues to drain. She denies N/V,. Febrile to 37.2 0200 this am. Patient denies feeling fevers or chills. Physical Exam Constitutional: no acute distress, not ill appearing and not diaphoretic Respiratory: normal respiratory effort; no respiratory distress, no labored breathing and does not use accessory muscles Skin: Left buttock abscess with packing and thin yellow drainage. There is some erythema around the drainage site and induration. Results & Data Vital Signs (Past 12 Hours) Vital Signs Temp Pulse Pulse Pulse Resp BP BP 03/09/24 07:35 88 03/09/24 07:32 36.6 C 89 17 130/81 03/09/24 02:31 37.6 C H 97 H 18 109/72 03/08/24 23:24 37.0 C 101 H 18 118/68 Pulse Ox O2 Del Method 03/09/24 07:35 03/09/24 07:32 95 Room Air 03/09/24 02:31 94 Room Air 03/08/24 23:24 95 Room Air Laboratory Results WBC 14.72 from 15.77 PG Care Time/CCT Total # of Minutes Spent Total Time Spent with Patient: Total time spent is greater than 50% in coordination of care (as documented) at patient's floor/unit and/or counseling patient: C[place] [address] SUB INP/OBS CARE 08/28MIN Patient Type Established Diagnoses Abscess of buttock, left L02.31
--- NOTE | 2024-03-09 12:55 | Pharmacy Report ---
Pharmacy PK ABX Note - Date of Service March 09, 2024 - Assessment and Plan Assessment 73 year old F receiving vancomcyin for treatment of L. buttock abscess, sepsis. Pertinent microbiologic data includes: Buttock culture growing MRSA. MRSA nasal swab also positive. WBC is downtrending 21.8 --> 14.7 today. Afebrile. Patient abscess was already draining but did have further I&D performed in the ED. Patient will be NPO after midnight (03/10) for surgical evaluation. SCr has co ntinued to downtrend, 1.1 -> 0.99 -> 0.77 mg/dL. Unsure of baseline SCr. Plan Vancomycin * Current regimen: 1250 mg IV every 18 hours * Random level obtained 03/09/24 resulted as 8.2 mcg/mL. This is not predicted to achieve target AUC/LEATHA of 400-600 mg/L.hr * Change to 1500 mg IV every 12 hours * Predicted AUC at steady state: 557 mg/L.hr * Will repeat level in the next 48-72 hours if therapy is continued and/or change in patient clinical status Pharmacy will continue to follow and will adjust dose/frequency as necessary. Thank you. Pharmacy has transitioned to AUC monitoring for vancomycin. AUC/LEATHA is the preferred PK/PD target and is associated with decreased risk of nephrotoxicity compared to traditional trough targets.
[2024-03-09] MEDS: VANCOMYCIN HCL 1,500 MG in SODIUM CHLORIDE 0.9% 500 ML IV SCH (13:41)
[2024-03-09] MEDS: POTASSIUM CHLORIDE CRTAB 20 MEQ TABCR PO SCH (13:41)
[2024-03-09 16:17] LABS: BUN Creatinine Ratio 17.4 (10-20); Calcium 8.7 mg/dl (8.6-10.3); Creatinine Clr Calc Pharmacy 76.1 ml/min; Est GFR (African American) 78.8 ml/min; Potassium 3.5 mmol/L (3.5-5.1)
[2024-03-10 08:00] LABS: Hematocrit (blood only) 30.1 % (37.0-47.0); Mean Corpuscular Hemoglobin 27.5 pg (25.0-34.0); Mean Corpuscular Hgb Conc 33.2 g/dL (32.0-36.0); Mean Corpuscular Volume 82.9 fL (80.0-100.0); Mean Platelet Volume 9.2 fL (9.4-12.4); Platelet Count 280 K/uL (130-400); RDW Coefficient of Variation 13.4 % (11.5-14.5); RDW Standard Deviation 40.9 fL (36.4-46.3); Red Blood Count 3.63 M/uL (4.20-5.40); White Blood Count 12.17 K/ul (4.8-10.8)
[2024-03-10 08:13] LABS: BUN Creatinine Ratio 17.4 (10-20); Calcium 8.7 mg/dl (8.6-10.3); Creatinine Clr Calc Pharmacy 93.5 ml/min; Est GFR (African American) 101.5 ml/min; Est GFR (Non-African American) 87.6 ml/min; Potassium 3.5 mmol/L (3.5-5.1)
--- NOTE | 2024-03-10 11:41 | Surgery Progress Note ---
Date of Service March 10, 2024 Assessment & Plan (1) Abscess of buttock, left: Plan: This is a 73yF with a PMH of DM, HTN, HLD, h/o CVA who presents to the [facility] ED on 03/07/24 with complaints of L buttocks discomfort that started out as a painful lump last week. It opened up starting last and patient has been using warm compresses, sitz baths, and triple antibiotic ointment. Despite this she developed some fevers/chills, nausea and generalized feelings of unwell prompting her to come in yesterday for further evaluation. In the ER the patient underwent a CT a/p that revealed a wound in the LEFT buttocks and cutaneous fat with associated sub-cutaneous edema and coalescing phlegmonous change. No drainable collection/abscess at this time. Also evidence of likely diarrheal disease. She reports she got it to start draining at home but this was improved in the ED. Plan Left buttock abscess. Wound cultures reveal (+)MRSA. Has not had any further fevers, remained afebrile the remainder of the day yesterday and o/n. Leukocytosis continuing to improve. Down to 12.17 from 14.72. On Vancomycin Continue with warm sitz baths and warm compresses to the area Irrigate and lightly pack daily F/U am labs Dispo planning: Likely D/C tomorrow. Eval for home nursing to help with wound packing. May follow up with me in the office next week Admission and Anticipated Discharge Date Admission Date: March 07, 2024 Subjective Patient was seen and examined this am. She says she does feel much better. Physical Exam Constitutional: healthy appearing; not ill appearing, not in distress and not diaphoretic Respiratory: normal respiratory effort; no respiratory distress, no labored breathing and does not use accessory muscles Gastrointestinal (Abdomen): Left buttock abscess with no active drainage this am. There was no packing in the wound. There was thick slough developing over the base of the wound and wound edges. This was lightly removed and the wound was checked for tunnels. There was a small area of tunneling at the lateral aspect of the wound where there was no fluid accumulation in this area. The wound was irrigated and gently packed with dry packing. Results & Data Vital Signs (Past 12 Hours) Vital Signs Temp Pulse Pulse Resp BP BP Pulse Ox 03/10/24 11:07 36.8 C 86 16 143/83 H 95 03/10/24 07:33 36.9 C 84 17 152/90 H 96 03/10/24 07:18 92 H 03/10/24 04:00 36.9 C 86 18 102/61 96 03/09/24 23:57 36.9 C 91 H 18 103/62 94 O2 Del Method 03/10/24 11:07 Room Air 03/10/24 07:33 Room Air 03/10/24 07:18 03/10/24 04:00 Room Air 03/09/24 23:57 Room Air PG Care Time/CCT Total # of Minutes Spent Total Time Spent with Patient: Total time spent is greater than 50% in coordination of care (as documented) at patient's floor/unit and/or counseling patient: Coding Level of Care Code 27585 SUB INP/OBS CARE 25MIN Diagnoses Abscess of buttock, left L02.31
--- NOTE | 2024-03-10 12:22 | Hospitalist Progress Note ---
Date of Service March 10, 2024 Assessment & Plan (1) Sepsis: (2) Abscess of buttock, left: Plan Patient with MRSA gluteal abscess that is significantly improved after I&D in ED Reviewed sensitivities, transition to oral antibiotics Continue wound care Coordinate home wound care Communication with surgical team, no plans to take to the OR, patient may eat Anticipate discharge tomorrow Admission and Anticipated Discharge Date Admission Date: March 07, 2024 Subjective Patient feeling significantly improved. Decreasing drainage from abscess Physical Exam Physical Exam: Constitutional: Alert HEENT: Mucous membranes moist. Lungs: Clear to auscultation, decreased, no wheezes rales or rhonchi CV: S1-S2, regular Abdomen: Soft, nontender, nondistended Extremities: No significant edema Neuro: No focal deficits Skin: Open abscess wound left gluteal cleft. Minimal redness, minimal tenderness, minimal discharge. Significantly improved from reports Psych: Cooperative, normal mood Results & Data Results & Data Vital Signs (Past 12 Hours) Vital Signs Temp Pulse Pulse Resp BP Pulse Ox O2 Del Method 03/10/24 11:07 36.8 C 86 16 143/83 H 95 Room Air 03/10/24 07:33 36.9 C 84 17 152/90 H 96 Room Air 03/10/24 07:18 92 H 03/10/24 04:00 36.9 C 86 18 102/61 96 Room Air Laboratory Results Reviewed imaging, laboratory and diagnostic studies. Pertinent findings as below. WBCs 12.1, significantly improved (1) Sepsis Sepsis acute organ dysfunction status: without acute organ dysfunction Sepsis type: sepsis due to unspecified organism Qualified Code(s): A41.9 - Sepsis, unspecified organism
[2024-03-10] MEDS: SULFAMETHOXAZOLE/TRIMETHOPRIM DS 800/160MG TAB PO SCH (19:32)
[2024-03-11] MEDS: FERROUS SULFATE 325 MG TAB PO SCH (08:36)
--- NOTE | 2024-03-11 08:59 | Discharge Summary ---
Discharge Summary Date of Service March 11, 2024 Principal Dx & Hospital Course #1 = Principal Diagnosis (1) Abscess of buttock, left: (2) Sepsis: (3) Iron deficiency anemia: (4) Diabetes mellitus type 2, controlled, without complications: (5) Hypertension: Plan Patient was admitted to the hospital. She had I&D initially performed in the emergency department and cultures were sent. She was placed on broad-spectrum antibiotics including vancomycin. She was seen by wound care and had wound care to the gluteal abscess on a regular basis. Surgical consultation was obtained and they followed the patient throughout her hospitalization. They did some bedside debridement but she did not need any further I&D in the operating room. Wound culture grew out MRSA. Sensitivities were reviewed. She continue on vancomycin. Through her hospitalization her WBCs improved. She had no fevers. And drainage from the abscess started to decrease. On the day of discharge she was feeling significantly improved. Wound was significantly improved. She could be transition to oral antibiotics as dictated by sensitivities. She will follow-up with wound care and surgery and outpatient continue to follow with the PCP for her routine care. Notes For Next Care Provider Follow-up with wound care Medication Changes From Visit Antibiotics for abscess, Iron for iron deficiency Admission HPI Per Admitting Provider 73-year-old female with past medical history significant for diabetes, hypertension, hyperlipidemia and history of stroke in 1998 presents with left buttock abscess and possible sepsis. Patient noticed lump on left buttock last Friday. She was cleaning and applying triple antibiotic cream. Patient states it started to drain since last Friday Initially she had a fever but that subsided. In last couple of days she lost appetite and today she was not feeling well when she decided to go to [facility] and was sent here. The abscess was drained in ER. Empirically treated with iv Vanco and Rocephin. And got IV fluids. Blood pressure somewhat soft. Currently states she is feeling better after getting fluids. Currently no headache. No runny nose or sore throat. No cough. No difficulty swallowing. No chest pain or shortness of breath. No nausea. No abdominal pain. Having diarrhea since last few days, couple of episodes every day. Micturating okay. Past medical history as mentioned above Past surgical history. Cholecystectomy and hysterectomy Social history. No smoking. No alcohol use. No drug use. Family history. Significant for diabetes heart disease and cancer Admission Exam Per Admitting Provider See H&P Discharge Exam Constitutional: Alert HEENT: Mucous membranes moist. Lungs: Clear to auscultation, decreased, no wheezes rales or rhonchi CV: S1-S2, regular Abdomen: Soft, nontender, nondistended Extremities: No significant edema Skin: Approximately 1-1/2 cm clean edge open wound on left gluteal cleft, no evidence of remaining abscess. No inflammation or cellulitic skin surrounding the opening. Significantly improving and healing from admission. Neuro: No focal deficits Psych: Cooperative, normal mood Updated Medication List Medication Instructions Recorded Confirmed Type cholecalciferol (vitamin D3) 25 0 mcg PO DAILY 03/07/24 03/07/24 History mcg (1,000 unit) tablet (Vitamin D3) ibuprofen 200 mg tablet 400 mg PO Q6H PRN Pain 03/07/24 03/07/24 History lisinopril 20 1 tab PO DAILY 03/07/24 03/07/24 History mg-hydrochlorothiazide 25 mg tablet loratadine 10 mg tablet (Claritin) 10 mg PO DAILY 03/07/24 03/07/24 History rosuvastatin 40 mg tablet 40 mg PO 2XWK 03/07/24 03/07/24 History semaglutide 7 mg tablet (Rybelsus) 7 mg PO DAILY 03/07/24 03/07/24 History Lactobacillus acidophilus, 1 packet PO TIDM #12 ea 03/11/24 Rx bulgaricus 100 million cell granules packet (Floranex) ferrous sulfate 325 mg (65 mg 325 mg PO QAM #30 tabs 03/11/24 Rx iron) tablet,delayed release sulfamethoxazole 800 1 tab PO Q12 7 days #14 tabs 03/11/24 Rx mg-trimethoprim 160 mg tablet (Bactrim DS) Hospital Stay Data Consultations 03/07/24 20:29 ED Decision to Admit Stat 03/08/24 08:00 Consult General Surgery Routine Diagnostic Imagining Performed Reviewed imaging, laboratory and diagnostic studies. Pertinent findings as below. Wound culture grew out MRSA sensitive to Bactrim Hemoglobin A1c 6.0% WBC is improved to 12.1 Iron 19 TIBC 175 Trans ferritin 11 03/08/24 00:29 CT abd pelvis IV con only Urgent Pending Results Patient Have Any Pending Studies at Discharge: No Discharge Instructions Given to Patient (Per Discharging Provider) may take warm sitz baths 3-4x/daily to help cleanse the wound and for comfort pack wound daily with 1'4 inch plain nu-gauze, cover with either gauze or a pad in undergarments to help protect your undergarments from drainage Total Time Total Time Spent Total Time Spent (In Minutes): 35
== END 2024-03-11 15:13 | disposition home or self-care (01) | DRG 872 ==
LOC: ED 17:39 → SUATTDRO 23:57 → EDINP 23:57 → 1E 03-08 00:30 → 2N 03-08 21:08